=== PATIENT | male | born 1990 ===

== ENCOUNTER 2021-05-07 16:57 | Emergency (ER) | payer SELFPAY ==
[2021-05-07 17:02] VITALS: BP 146/99
== END 2021-05-07 18:19 | disposition left against medical advice (07) ==
LOC: ED 16:57
DX: R10.9 Unspecified abdominal pain (principal); Z53.21 Procedure and treatment not carried out due to patient leaving prior to being seen by health care provider

== ENCOUNTER 2021-05-10 09:39 | Inpatient (IN) | payer SELFPAY ==
[2021-05-10] MEDS ORDERED: ONDANSETRON 4 MG/2 ML INJ IV ONE ×2 (11:00→13:38)
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
[2021-05-10 11:15] LABS: Basophils % (Auto) 0.7 % (0.0-1.8); Eosinophils # (Auto) 0.3 K/mm3 (0.0-0.4); Eosinophils % (Auto) 5.7 % (0.0-4.3); Hematocrit 45.7 % (35.5-45.6); Lymphocytes # (Auto) 1.4 K/mm3 (1.2-5.4); Lymphocytes % (Auto) 24.5 % (13.4-35.0); Mean Corpuscular HGB Conc 35 % (32-34); Mean Corpuscular Volume 93 fl (84-94); Monocytes # (Auto) 0.9 K/mm3 (0.0-0.8); Monocytes % (Auto) 14.8 % (0.0-7.3); Platelet Count 218 K/mm3 (140-440); Red Blood Count 4.89 M/mm3 (3.65-5.03); Red Cell Distribution Width 13.4 % (13.2-15.2)
[2021-05-10 11:36] LABS: Alanine Aminotransferase 337 units/L (7-56); Albumin 3.9 g/dL (3.9-5); BUN/Creatinine Ratio 9; Blood Urea Nitrogen 9 mg/dL (9-20); Calcium 9.3 mg/dL (8.4-10.2); Hemolysis Index 15
--- NOTE | 2021-05-10 12:23 | Cat Scan Report ---
CT abdomen pelvis w con INDICATION / CLINICAL INFORMATION: LUQ pain and tenderness. 100 ML OMNI 300 . TECHNIQUE: Axial CT imaging of abdomen and pelvis was obtained with IV contrast. Coronal and sagittal reformatte d imaging obtained and reviewed. All CT scans at this location are performed using CT dose reduction for ALARA by means of automated exposure control. COMPARISON: None available. FINDINGS: CT abdomen with IV contrast demonstrates normal appearance of the liver, spleen, pancreas, kidneys, a nd adrenal glands. Gallbladder is mildly distended. There is mild gallbladder wall thickening. A stent is present in the common bile duct. There is a trace of intrahepatic biliary dilatation present. CT pelvis with contrast does not demonstrate any mass, free fluid, or focal inflammatory change. GI t ract is unremarkable. The appendix is not identified. Visualized lung bases are clear. No acute osseous abnormality. IMPRESSION: 1. A stent is present in the common bile duct and appears to be in satisfactory position. No signific ant biliary dilatation. However, the gallbladder does appear slightly abnormal. Gallbladder is mildly distended and there is diffuse gallbladder wall thickening. This may be patient's chronic appearance of gallbladder following stent placement, however, acute cholecystitis could also have this appearan ce and clinical correlation is recommended as to whether further imaging with ultrasound is required. 2. No other abnormal finding is present within the abdomen or pelvis. I see no finding to account for the patient's complaint of left upper quadrant pain. Signer Name: Emelyn Street MD Signed: 05/10/2021 12:19 PM Workstation Name: [id number]
[2021-05-10] MEDS ORDERED: MORPHINE 4 MG/1 ML INJ IV ONE (13:38)
[2021-05-10 13:42] LABS: Bilirubin,Urine MOD (Negative); Blood,Urine NEG (Negative); Color,Urine Amber (Yellow); Mucus,Urine 3+ /HPF
[2021-05-10 13:48] LABS: Ictotest,Urine Positive (Negative)
--- NOTE | 2021-05-10 15:25 | Ultrasound Report ---
ULTRASOUND ABDOMEN, LIMITED (RIGHT UPPER QUADRANT) INDICATION: Right upper quadrant pain. COMPARISON: CT abdomen earlier today. FINDINGS: Pancreas: Not visualized. Liver: Normal. Gallbladder: As seen on image 34, there is an irregular intraluminal hyperechoic focus in the gallbla dder measuring 3.6 x 1.1 cm. There is no shadowing associated with this. This is nonmobile. No defini te shadowing stones. There is borderline gallbladder wall thickening. Bile ducts: There is no intrahepatic biliary dilatation. Common Bile Duct stent is noted. Duct measur es 4 mm. Free fluid: None. Additional Findings: None. IMPRESSION: 1. Somewhat irregular nonmobile nonshadowing 3.6 cm focus in the lumen of the gallbladder. This could be atypical sludge; however, it does not appear to layer. No definite gallstones are seen. An intrin sic gallbladder neoplasm would be unusual in a patient of this age. There is no corresponding CT abno rmality on the exam from earlier today. 2. No intrahepatic biliary dilatation. Signer Name: Td Bell MD Signed: 05/10/2021 3:21 PM Workstation Name: [id number]
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
--- NOTE | 2021-05-10 21:00 | History and Physical Report ---
History of Present Illness Date of admission: 05/10/21 17:42 Medications and Allergies Allergies Allergy/AdvReac Type Severity Reaction Status Date / Time No Known Allergies Allergy Unverified 05/10/21 10:42 Exam - Constitutional Vitals: Temp Pulse Resp BP Pulse Ox 98.3 F 83 18 155/101 98 05/10/21 10:58 05/10/21 10:58 05/10/21 14:47 05/10/21 10:58 05/10/21 10:58 Results - Labs CBC & Chem 7: 05/10/21 11:03 05/10/21 11:03 Labs: Laboratory Last Values WBC 5.9 K/mm3 (4.5-11.0) 05/10/21 11:03 RBC 4.89 M/mm3 (3.65-5.03) 05/10/21 11:03 Hgb 16.0 gm/dl (11.8-15.2) H 05/10/21 11:03 Hct 45.7 % (35.5-45.6) H 05/10/21 11:03 MCV 93 fl (84-94) 05/10/21 11:03 MCH 33 pg (28-32) H 05/10/21 11:03 MCHC 35 % (32-34) H 05/10/21 11:03 RDW 13.4 % (13.2-15.2) 05/10/21 11:03 Plt Count 218 K/mm3 (140-440) 05/10/21 11:03 Lymph % (Auto) 24.5 % (13.4-35.0) 05/10/21 11:03 [place] % (Auto) 14.8 % (0.0-7.3) H 05/10/21 11:03 Eos % (Auto) 5.7 % (0.0-4.3) H 05/10/21 11:03 Baso % (Auto) 0.7 % (0.0-1.8) 05/10/21 11:03 Lymph # (Auto) 1.4 K/mm3 (1.2-5.4) 05/10/21 11:03 [place] # (Auto) 0.9 K/mm3 (0.0-0.8) H 05/10/21 11:03 Eos # (Auto) 0.3 K/mm3 (0.0-0.4) 05/10/21 11:03 Baso # (Auto) 0.0 K/mm3 (0.0-0.1) 05/10/21 11:03 Seg Neutrophils % 54.3 % (40.0-70.0) 05/10/21 11:03 Seg Neutrophils # 3.2 K/mm3 (1.8-7.7) 05/10/21 11:03 Sodium 140 mmol/L (137-145) 05/10/21 11:03 Potassium 4.8 mmol/L (3.6-5.0) 05/10/21 11:03 Chloride 102.5 mmol/L (98-107) 05/10/21 11:03 Carbon Dioxide 26 mmol/L (22-30) 05/10/21 11:03 Anion Gap 16 mmol/L 05/10/21 11:03 BUN 9 mg/dL (9-20) 05/10/21 11:03 Creatinine 1.0 mg/dL (0.8-1.3) 05/10/21 11:03 Estimated GFR > 60 ml/min 05/10/21 11:03 BUN/Creatinine Ratio 9 % 05/10/21 11:03 Glucose 121 mg/dL (75-100) H 05/10/21 11:03 Calcium 9.3 mg/dL (8.4-10.2) 05/10/21 11:03 Total Bilirubin 3.20 mg/dL (0.1-1.2) H 05/10/21 11:03 AST 139 units/L (5-40) H 05/10/21 11:03 ALT 337 units/L (7-56) H 05/10/21 11:03 Alkaline Phosphatase 171 units/L (35-129) H 05/10/21 11:03 Total Protein 8.1 g/dL (6.3-8.2) 05/10/21 11:03 Albumin 3.9 g/dL (3.9-5) 05/10/21 11:03 Albumin/Globulin Ratio 0.9 % 05/10/21 11:03 Lipase 50 units/L (13-60) 05/10/21 11:03 Urine Color Sarah (Yellow) 05/10/21 13:19 Urine Turbidity Clear (Clear) 05/10/21 13:19 Urine pH 7.0 (5.0-7.0) 05/10/21 13:19 Ur Specific [place] 1.026 (1.003-1.030) 05/10/21 13:19 Urine Protein 30 mg/dl mg/dL (Negative) 05/10/21 13:19 Urine Glucose (UA) Neg mg/dL (Negative) 05/10/21 13:19 Urine Ketones Neg mg/dL (Negative) 05/10/21 13:19 Urine Blood Neg (Negative) 05/10/21 13:19 Urine Nitrite Neg (Negative) 05/10/21 13:19 Urine Bilirubin Mod (Negative) 05/10/21 13:19 Urine Ictotest Positive (Negative) 05/10/21 13:19 Urine Urobilinogen 4.0 mg/dL (<2.0) 05/10/21 13:19 Ur Leukocyte Esterase Neg (Negative) 05/10/21 13:19 Urine WBC (Auto) 2.0 /HPF (0.0-6.0) 05/10/21 13:19 Urine RBC (Auto) 5.0 /HPF (0.0-6.0) 05/10/21 13:19 U Epithel Cells (Auto) < 1.0 /HPF (0-13.0) 05/10/21 13:19 Urine Mucus 3+ /HPF 05/10/21 13:19
[2021-05-10] MEDS ORDERED: HYDROmorphone 1 MG/1 ML INJ IV PRN (21:02)
[2021-05-10] MEDS ORDERED: ONDANSETRON 4 MG/2 ML INJ IV PRN (21:02)
[2021-05-10] MEDS ORDERED: ACETAMINOPHEN 325 MG TAB PO PRN (21:02)
[2021-05-10] MEDS ORDERED: METOCLOPRAMIDE 10 MG/2 ML INJ IV PRN (21:02)
[2021-05-10 22:21] LABS: Hepatitis C Virus Antibody Non-Reactive (NonReactive)
[2021-05-10] MEDS: FAMOTIDINE 20 MG/2 ML INJ IV SCH (22:46)
[2021-05-10] MEDS: PIPERACIL/TAZOBACTA 4.5/NS 100 4.5 GM/100 ML VIAL IV SCH (22:47)
[2021-05-10] MEDS: D5W/0.9% NACL 1,000 ML IV SCH (22:48)
[2021-05-10 23:40] LABS: Hepatitis B Surface Antigen Nonreactive (Negative)
[2021-05-11] MEDS: PIPERACIL/TAZOBACTA 4.5/NS 100 4.5 GM/100 ML VIAL IV SCH ×3 (05:49→23:35)
[2021-05-11 06:40] LABS: Hematocrit 42.2 % (35.5-45.6); Hemoglobin 14.6 gm/dl (11.8-15.2); Mean Corpuscular HGB Conc 35 % (32-34); Mean Corpuscular Volume 94 fl (84-94); Platelet Count 211 K/mm3 (140-440); Red Blood Count 4.47 M/mm3 (3.65-5.03); Red Cell Distribution Width 13.5 % (13.2-15.2)
[2021-05-11 06:57] LABS: Alanine Aminotransferase 279 units/L (7-56); Albumin 3.3 g/dL (3.9-5); BUN/Creatinine Ratio 5; Blood Urea Nitrogen 6 mg/dL (9-20); Hemolysis Index 5
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
--- NOTE | 2021-05-11 11:42 | Magnetic Resonance Report ---
MRI ABDOMEN WITHOUT CONTRAST HISTORY: Right upper quadrant pain and transaminitis COMPARISON: Ultrasound right upper quadrant and CT abdomen and pelvis performed 05/10/2021 TECHNIQUE: Multiplanar, multisequence MR imaging was performed of the abdomen without intravenous con trast. T2-weighted MIP projections were post-processed under concurrent physician supervision for pu rposes of MRCP. CONTRAST: None. FINDINGS: Liver: No significant abnormality. Biliary: Trace sludge is suspected in the gallbladder is noted on previous ultrasound. No evidence fo r gallstones or gallbladder mass. Small pericholecystic fluid is evident in the subhepatic space. The MRCP images are somewhat limited particularly involving the distal common bile duct secondary to the common bile duct stent. No obvious obstructing lesion in the distal common bile duct is appreciated. No intrahepatic biliary dilatation. Spleen: No significant abnormality. Pancreas: No significant abnormality. The pancreatic duct is normal on MRCP. Adrenals: No significant abnormality. Kidneys: No significant abnormality. Lymphatics: No lymphadenopathy. Vasculature: No significant abnormality. Bowel and Mesentery: Visualized portions without significant abnormality. Osseous Structures: No significant abnormality. Additional Findings: None. IMPRESSION: Trace sludge is suspected in the gallbladder. No gallstones are obvious choledocholithiasis. Evaluati on of the distal common bile duct is slightly limited on MRCP due to the presence of a common bile du ct stent. No biliary dilatation is suspected. There is small pericholecystic fluid in the subhepatic space of unclear etiology. Unremarkable liver parenchyma. Signer Name: Albaro Murillo Jr, MD Signed: 05/11/2021 11:38 AM Workstation Name: [id number]
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
[2021-05-11] MEDS: FAMOTIDINE 20 MG/2 ML INJ IV SCH ×2 (13:38→23:36)
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
--- NOTE | 2021-05-11 17:07 | Event Note ---
Date: 05/11/21 - pt seen and examined, full consult dictated - pt will need ercp w/ stent removal - discussed w/ surgery, decision as to timing of procedure to follow - will follow
[2021-05-11] MEDS: D5W/0.9% NACL 1,000 ML IV SCH (17:45)
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
[2021-05-12] MEDS: PIPERACIL/TAZOBACTA 4.5/NS 100 4.5 GM/100 ML VIAL IV SCH (06:12)
--- NOTE | 2021-05-12 07:33 | Progress Note ---
Assessment and Plan Assessment and plan: #Possible cholecystitis #Right upper quadrant abdominal pain #Elevated liver enzymes #Hyperbilirubinemia -s/p biliary stent in 2019 -CT abdomen/pelvis 05/10: Showed actually placed biliary stent and enlarged gallbladder without visualize gallstones -RUQ abdominal US 05/10 -MRCP 05/11: Suspected trace sludge in gallbladder with limited evaluation of the distal CBD -ERCP today via GI -Cholecystectomy today per Surgery -AST/ALT/T bili downtrending, will continue to monitor #Volume depletion -Continue IV fluid resuscitation #DVT prophylaxis -Continue SQH 3 times daily Disposition Plan: Home Total Time Spent with Patient (Minutes): 20 minutes History Interval history: No acute events overnight. Patient reports major improvement in epigastric pain. Denies nausea, vomiting, and diarrhea. Hospitalist Physical - Physical exam Narrative exam: GENERAL: Well-developed well-nourished. Sitting on the bed in no acute distress. CHEST/LUNGS: CTAB on room air HEART/CARDIOVASCULAR: RRR. No murmur, rubs or gallops appreciated. ABDOMEN: +BS. NT/ND. SKIN: No rashes noted. NEURO: No focal motor deficit. Follows all commands and is ambulatory. MUSCULOSKELETAL: No joint effusion EXTREMITIES: No cyanosis, clubbing or edema. PSYCH: Cooperative. - Constitutional Vitals: Temp Pulse Resp BP Pulse Ox 98.0 F 71 18 124/94 98 05/12/21 03:57 05/12/21 03:57 05/12/21 03:57 05/12/21 03:57 05/12/21 06:00 General appearance: Present: no acute distress, well-nourished HEART Score - HEART Score Risk factors: No known risk factors Troponin: < normal limit - Critical Actions Critical Actions: 0-3 pts:0.9-1.7%risk of adverse cardiac event.Candidate for discharge Results - Labs CBC & Chem 7: 05/12/21 07:18 05/12/21 07:18 Labs: Laboratory Last Values WBC 4.4 K/mm3 (4.5-11.0) L 05/11/21 05:09 RBC 4.47 M/mm3 (3.65-5.03) 05/11/21 05:09 Hgb 14.6 gm/dl (11.8-15.2) 05/11/21 05:09 Hct 42.2 % (35.5-45.6) 05/11/21 05:09 MCV 94 fl (84-94) 05/11/21 05:09 MCH 33 pg (28-32) H 05/11/21 05:09 MCHC 35 % (32-34) H 05/11/21 05:09 RDW 13.5 % (13.2-15.2) 05/11/21 05:09 Plt Count 211 K/mm3 (140-440) 05/11/21 05:09 Lymph % (Auto) 24.5 % (13.4-35.0) 05/10/21 11:03 Sampson % (Auto) Petroleum Engineering Professor 05/11/21 05:09 Eos % (Auto) 5.7 % (0.0-4.3) H 05/10/21 11:03 Baso % (Auto) 0.7 % (0.0-1.8) 05/10/21 11:03 Lymph # (Auto) 1.4 K/mm3 (1.2-5.4) 05/10/21 11:03 Sampson # (Auto) 0.9 K/mm3 (0.0-0.8) H 05/10/21 11:03 Eos # (Auto) 0.3 K/mm3 (0.0-0.4) 05/10/21 11:03 Baso # (Auto) 0.0 K/mm3 (0.0-0.1) 05/10/21 11:03 Add Manual Diff Complete 05/11/21 05:09 Seg Neutrophils % 54.3 % (40.0-70.0) 05/10/21 11:03 Nucleated RBC % Not Reportable 05/11/21 05:09 Seg Neutrophils # 3.2 K/mm3 (1.8-7.7) 05/10/21 11:03 WBC Morphology Not Reportable 05/11/21 05:09 Hypersegmented Neuts Not Reportable 05/11/21 05:09 Hyposegmented Neuts Not Reportable 05/11/21 05:09 Hypogranular Neuts Not Reportable 05/11/21 05:09 Smudge Cells Not Reportable 05/11/21 05:09 Toxic Granulation Not Reportable 05/11/21 05:09 Toxic Vacuolation Not Reportable 05/11/21 05:09 Dohle Bodies Not Reportable 05/11/21 05:09 Pelger-Huet Anomaly Not Reportable 05/11/21 05:09 Tarah Rods Not Reportable 05/11/21 05:09 Platelet Estimate Not Reportable 05/11/21 05:09 Clumped Platelets Not Reportable 05/11/21 05:09 Plt Clumps, EDTA Not Reportable 05/11/21 05:09 Large Platelets Not Reportable 05/11/21 05:09 Giant Platelets Not Reportable 05/11/21 05:09 Platelet Satelliting Not Reportable 05/11/21 05:09 Plt Morphology Comment Not Reportable 05/11/21 05:09 RBC Morphology Not Reportable 05/11/21 05:09 Dimorphic RBCs Not Reportable 05/11/21 05:09 Polychromasia Not Reportable 05/11/21 05:09 Hypochromasia Not Reportable 05/11/21 05:09 Poikilocytosis Not Reportable 05/11/21 05:09 Anisocytosis Not Reportable 05/11/21 05:09 Microcytosis Not Reportable 05/11/21 05:09 Macrocytosis Not Reportable 05/11/21 05:09 Spherocytes Not Reportable 05/11/21 05:09 Pappenheimer Bodies Not Reportable 05/11/21 05:09 Sickle Cells Not Reportable 05/11/21 05:09 Target Cells Not Reportable 05/11/21 05:09 Tear Drop Cells Not Reportable 05/11/21 05:09 Ovalocytes Not Reportable 05/11/21 05:09 Helmet Cells Not Reportable 05/11/21 05:09 [place] Bodies Not Reportable 05/11/21 05:09 [place] Rings Not Reportable 05/11/21 05:09 Emerald Cells Not Reportable 05/11/21 05:09 Bite Cells Not Reportable 05/11/21 05:09 Crenated Cell Not Reportable 05/11/21 05:09 Elliptocytes Not Reportable 05/11/21 05:09 Acanthocytes (Spur) Not Reportable 05/11/21 05:09 Rouleaux Not Reportable 05/11/21 05:09 Hemoglobin C Crystals Not Reportable 05/11/21 05:09 Schistocytes Not Reportable 05/11/21 05:09 Malaria parasites Not Reportable 05/11/21 05:09 Blaine Bodies Not Reportable 05/11/21 05:09 Hem Pathologist Commnt No 05/11/21 05:09 Sodium 139 mmol/L (137-145) 05/11/21 05:09 Potassium 4.0 mmol/L (3.6-5.0) 05/11/21 05:09 Chloride 103.5 mmol/L (98-107) 05/11/21 05:09 Carbon Dioxide 27 mmol/L (22-30) 05/11/21 05:09 Anion Gap 13 mmol/L 05/11/21 05:09 BUN 6 mg/dL (9-20) L 05/11/21 05:09 Creatinine 1.2 mg/dL (0.8-1.3) 05/11/21 05:09 Estimated GFR > 60 ml/min 05/11/21 05:09 BUN/Creatinine Ratio 5 % 05/11/21 05:09 Glucose 112 mg/dL (75-100) H 05/11/21 05:09 Calcium 9.0 mg/dL (8.4-10.2) 05/11/21 05:09 Total Bilirubin 2.20 mg/dL (0.1-1.2) H 05/11/21 05:09 AST 112 units/L (5-40) H 05/11/21 05:09 ALT 279 units/L (7-56) H 05/11/21 05:09 Alkaline Phosphatase 160 units/L (35-129) H 05/11/21 05:09 Total Protein 7.0 g/dL (6.3-8.2) 05/11/21 05:09 Albumin 3.3 g/dL (3.9-5) L 05/11/21 05:09 Albumin/Globulin Ratio 0.9 % 05/11/21 05:09 Lipase 50 units/L (13-60) 05/10/21 11:03 Urine Color Sarah (Yellow) 05/10/21 13:19 Urine Turbidity Clear (Clear) 05/10/21 13:19 Urine pH 7.0 (5.0-7.0) 05/10/21 13:19 Ur Specific [place] 1.026 (1.003-1.030) 05/10/21 13:19 Urine Protein 30 mg/dl mg/dL (Negative) 05/10/21 13:19 Urine Glucose (UA) Neg mg/dL (Negative) 05/10/21 13:19 Urine Ketones Neg mg/dL (Negative) 05/10/21 13:19 Urine Blood Neg (Negative) 05/10/21 13:19 Urine Nitrite Neg (Negative) 05/10/21 13:19 Urine Bilirubin Mod (Negative) 05/10/21 13:19 Urine Ictotest Positive (Negative) 05/10/21 13:19 Urine Urobilinogen 4.0 mg/dL (<2.0) 05/10/21 13:19 Ur Leukocyte Esterase Neg (Negative) 05/10/21 13:19 Urine WBC (Auto) 2.0 /HPF (0.0-6.0) 05/10/21 13:19 Urine RBC (Auto) 5.0 /HPF (0.0-6.0) 05/10/21 13:19 U Epithel Cells (Auto) < 1.0 /HPF (0-13.0) 05/10/21 13:19 Urine Mucus 3+ /HPF 05/10/21 13:19 Hepatitis A IgM Ab Non-reactive (NonReactive) 05/10/21 21:40 Hep Bs Antigen Nonreactive (Negative) 05/10/21 21:40 Hep B Core IgM Ab Non-reactive (NonReactive) 05/10/21 21:40 Hepatitis C Antibody Non-reactive (NonReactive) 05/10/21 21:40 Mendoza/IV: Voiding Method Toilet Active Medications - Current Medications Current Medications: Generic Name Dose Route Start Last Admin Trade Name Freq PRN Reason Stop Dose Admin Acetaminophen 650 mg 05/10/21 21:02 Acetaminophen 325 Mg Tab PO Q4H PRN Pain MILD(1-3)/Fever >100.5/MANN Famotidine 20 mg 05/10/21 22:00 05/11/21 23:36 Famotidine 20 Mg/2 Ml Inj IV 20 mg BID KRISTI Administration Hydromorphone HCl 0.5 mg 05/10/21 21:02 Hydromorphone 1 Mg/1 Ml Inj IV Q3H PRN Pain , Severe (7-10) Dextrose/Sodium Chloride 1,000 mls @ 75 mls/hr 05/10/21 22:00 05/11/21 17:45 D5ns IV 75 mls/hr DIRECT KRISTI Administration Piperacillin Sod/Tazobactam Sod 4.5 gm in 100 mls @ 200 mls/hr 05/10/21 22:00 05/12/21 06:12 Zosyn/Ns 4.5gm/100ml IV 200 mls/hr Q8HR KRISTI Administration Protocol Metoclopramide HCl 10 mg 05/10/21 21:02 Metoclopramide 10 Mg/2 Ml Inj IV Q6H PRN Nausea And Vomiting Morphine Sulfate 2 mg 05/10/21 21:02 Morphine 2 Mg/1 Ml Inj IV Q4H PRN Pain, Moderate (4-6) Ondansetron HCl 4 mg 05/10/21 21:02 Ondansetron 4 Mg/2 Ml Inj IV Q3H PRN Nausea And Vomiting Sodium Chloride 10 ml 05/10/21 22:00 05/11/21 22:00 Sodium Chloride 0.9% 10 Ml Flush Syringe IV 10 ml BID KRISTI Administration Sodium Chloride 10 ml 05/10/21 21:02 Sodium Chloride 0.9% 10 Ml Flush Syringe IV PRN PRN LINE FLUSH
[2021-05-12 08:08] LABS: Mean Corpuscular HGB Conc 37 % (32-34); Mean Corpuscular Volume 92 fl (84-94); Platelet Count 230 K/mm3 (140-440); Red Blood Count 4.48 M/mm3 (3.65-5.03); Red Cell Distribution Width 13.6 % (13.2-15.2)
[2021-05-12 08:10] LABS: Hematocrit 41.1 % (35.5-45.6); Hemoglobin 15.1 gm/dl (11.8-15.2)
[2021-05-12 08:40] LABS: BUN/Creatinine Ratio 5; Blood Urea Nitrogen 7 mg/dL (9-20); Calcium 9.1 mg/dL (8.4-10.2); Hemolysis Index 6
[2021-05-12] MEDS: FAMOTIDINE 20 MG/2 ML INJ IV SCH ×2 (09:17→23:37)
[2021-05-12] MEDS ORDERED: fentaNYL 100 MCG/2 ML INJ ONE ×2 (10:48→17:59)
[2021-05-12] MEDS ORDERED: LIDOCAINE MPF (2%) 20 MG/1 ML VIAL 5 ML ONE ×2 (10:48→13:16)
[2021-05-12] MEDS ORDERED: propofoL 200 MG/20 ML VIAL IV ONE ×4 (10:49→13:42)
[2021-05-12] MEDS ORDERED: KETAMINE/STERILE WATER 50 MG/ML SYRINGE ONE ×2 (10:49→13:17)
[2021-05-12] MEDS ORDERED: ONDANSETRON 4 MG/2 ML INJ ONE (10:50)
[2021-05-12] MEDS ORDERED: ROCURONIUM 50 MG/5 ML INJ IV ONE ×3 (10:50→17:40)
[2021-05-12] MEDS ORDERED: dexAMETHasone 20 MG/5 ML VIAL ONE (10:50)
[2021-05-12] MEDS ORDERED: WATER FOR IRRIG STERILE 1,000 ML BOTTLE ONE (12:26)
[2021-05-12] MEDS ORDERED: WATER FOR IRRIG STERILE 250 ML BOTTLE IR ONE (12:26)
[2021-05-12] MEDS ORDERED: SODIUM CHLORIDE 0.9% 100 ML ONE (12:39)
[2021-05-12] MEDS ORDERED: SODIUM CHLORIDE 0.9% 1000 ML 1,000 ML ONE (13:01)
[2021-05-12] MEDS ORDERED: MIDAZOLAM 2 MG/2 ML INJ ONE (13:17)
[2021-05-12] MEDS ORDERED: ONDANSETRON 4 MG/2 ML INJ IV PRN (14:26)
--- NOTE | 2021-05-12 14:26 | Anesthesia Day of Surgery ---
Anesthesia Day of Surgery - Day of Surgery Patient Examined: Yes Patient H&P Reviewed: Yes Patient is NPO: Yes
[2021-05-12] MEDS ORDERED: LIDOCAINE (1%) 10 MG/1 ML VIAL 20 ML MDV ONE (14:33)
[2021-05-12] MEDS ORDERED: BUPIVACAINE/PF (0.25%) 2.5 MG/ML 30 ML VIAL INFILTRATI ONE (14:33)
--- NOTE | 2021-05-12 14:34 | Post Operative Note ---
Pre-op diagnosis: biliary stent removal, abdominal pain Post-op diagnosis: same Findings: ERCP: noted ampullae w/ sphinterotomy but no noted protruding stent - metal stent noted on cholangiogram migrated into cbd - unable to remove stent with use of forceps - procedure terminated Procedure: ERCP Anesthesia: MAC Surgeon: RADHA PENNY Estimated blood loss: none Pathology: list Specimen disposition: to lab Condition: stable Disposition: floor
--- NOTE | 2021-05-12 14:50 | Operative Report ---
DATE OF SURGERY: 05/12/2021 PROCEDURE: ERCP. INDICATIONS: 1. Abdominal pain. 2. Biliary stent removal. MEDICATIONS: Propofol per TEACHING FELLOW. COMPLICATIONS: None. DESCRIPTION OF PROCEDURE: The patient brought to procedure suite. The patient had the procedure discussed with him at length. All risks, complications, benefits discussed, which the patient signed for the procedure performed. The patient was placed in left lateral decubitus position. Mouth block was placed in the patient's oral cavity. After adequate sedation with medications as above, endoscope was placed in the patient's mouth and brought to level of second portion of duodenum. Retroflexion view performed. The patient's vital signs remained stable throughout the procedure. FINDINGS: There was noted to be grossly normal-appearing esophagus and stomach. In the second portion of duodenum, there was noted to be ampulla with a large sphincterotomy. No obvious stents were noted protruding from the ampulla or sphincterotomy. Fluoroscopy views showed a metal stent that had migrated with the tip in the very distal common bile duct. Otherwise, the stent was noted to be in place and the intrahepatic ducts otherwise appeared benign. Rat tooth forceps was then employed to try to see if we could remove the stent, but was unsuccessful. No further interventions were then performed. The patient otherwise tolerated the procedure well. No complication during the procedure. IMPRESSION: 1. Grossly normal-appearing esophagus and stomach. 2. Ampulla with previous large sphincterotomy noted, but no stent protruding. 3. Fluoroscopy view showed migrated stent to the distal common bile duct. 4. Unable to remove stent as noted above. RECOMMENDATIONS: 1. Follow labs. 2. Laparoscopic cholecystectomy per surgery team. 3. Once the patient cleared by surgery, okay to discharge. 4. The patient will require ERCP with [employer] as an outpatient to remove the stent and we will set up as an outpatient. 5. We will try to also get previous operative notes from the patient at that time. TID: [id number] RECEIPT: [id number] CAB/SANDRO
[2021-05-12] MEDS ORDERED: ceFAZolin 1 GM VIAL ONE (15:02)
[2021-05-12] MEDS ORDERED: HYDROmorphone 1 MG/1 ML INJ ONE (15:17)
--- NOTE | 2021-05-12 15:20 | Fluoroscopy Report ---
FL ercp biliary duct INDICATION / CLINICAL INFORMATION: stent removal/retained stent. COMPARISON: MRI abdomen one day prior FINDINGS: A common bile duct stent is in place. Fluoroscopic images were obtained during ERCP for attempt at st ent removal. Fluoroscopy time: 1 minute 53 seconds. Fluoroscopic images: 2. IMPRESSION: 1. Fluoroscopic images for ERCP. Signer Name: Priya Rodriguez MD Signed: 05/12/2021 3:16 PM Workstation Name: [id number]
[2021-05-12] MEDS ORDERED: LACTATED RINGERS 1,000 ML ONE ×2 (15:44→18:23)
[2021-05-12 16:20] LABS: Platelet Estimate Consistent w Auto; RBC Morphology Normal; Total Cells Counted 100
[2021-05-12] MEDS ORDERED: LIDOCAINE (1%) 10 MG/1 ML VIAL 20 ML MDV INFILTRATI ONE (16:38)
[2021-05-12] MEDS ORDERED: BUPIVACAINE/PF (0.5%) 5 MG/1 ML 10 ML VIAL INFILTRATI ONE (16:39)
[2021-05-12] MEDS ORDERED: NEOSTIGMINE 10MG/10 ML INJ MDV ONE (18:27)
[2021-05-12] MEDS ORDERED: GLYCOPYRROLATE 0.4 MG/2 ML INJ ONE ×2 (18:27)
--- NOTE | 2021-05-12 18:51 | Post Operative Note ---
Pre-op diagnosis: acute cholecystitis Post-op diagnosis: same Findings: 1. Extensive adhesions - essentially frozen abdomen 2. distended gallbladder with thickened wall Procedure: diagnostic laparoscopy converted to exploratory laparotomy, extensive adhesiolysis, cholecystectomy, primary repair of enterotomy Anesthesia: LVA Surgeon: LOUISA RUSSO [place] Calciner: NEELIMA NOLASCO Estimated blood loss: 50-100ml Pathology: list (gallbladder) Specimen disposition: to lab Condition: stable Disposition: PACU
[2021-05-12] MEDS: HYDROmorphone 1 MG/1 ML INJ IV PRN ×2 (19:28→20:00)
[2021-05-12] MEDS: metroNIDAZOLE/NS 500 MG/100 ML 500 MG/100 ML BAG IV SCH (23:28)
[2021-05-12] MEDS: MORPHINE 2 MG/1 ML INJ IV PRN (23:31)
[2021-05-12] MEDS: HEPARIN 5,000 UNIT/1 ML VIAL SUB-Q SCH (23:37)
[2021-05-13] MEDS: PIPERACIL/TAZOBACTA 4.5/NS 100 4.5 GM/100 ML VIAL IV SCH ×6 (00:10→22:26)
[2021-05-13] MEDS: metroNIDAZOLE/NS 500 MG/100 ML 500 MG/100 ML BAG IV SCH (03:20)
[2021-05-13] MEDS: HEPARIN 5,000 UNIT/1 ML VIAL SUB-Q SCH ×3 (05:28→22:26)
[2021-05-13] MEDS: MORPHINE 2 MG/1 ML INJ IV PRN ×3 (06:33→20:11)
--- NOTE | 2021-05-13 08:38 | Progress Note ---
Assessment and Plan Assessment and plan: #Possible cholecystitis #Right upper quadrant abdominal pain #Elevated liver enzymes #Hyperbilirubinemia -s/p biliary stent in 2019 -CT abdomen/pelvis 05/10: Showed actually placed biliary stent and enlarged gallbladder without visualize gallstones -RUQ abdominal US 05/10 -MRCP 05/11: Suspected trace sludge in gallbladder with limited evaluation of the distal CBD -ERCP completed 05/12 -s/p exploratory laparotomy, extensive adhesiolysis, cholecystectomy and primary repair of enterotomy 05/12 -CLD, will advance as tolerated -AST/ALT/T bili downtrending, will continue to monitor #Volume depletion -continue IV fluid resuscitation -will discontinue IV fluids once patient has oral intake #DVT prophylaxis -Continue SQH 3 times daily Disposition Plan: Home Total Time Spent with Patient (Minutes): 30 minutes History Interval history: No acute events overnight. Patient in visible pain. Has requested pain medicine. Has no other complaints at this time Hospitalist Physical - Physical exam Narrative exam: GENERAL: Well-developed well-nourished. Lying in bed in no acute distress. CHEST/LUNGS: CTAB on room air HEART/CARDIOVASCULAR: RRR. No murmur, rubs or gallops appreciated. ABDOMEN: Abdominal binder. Midline abdominal surgical incision covered with clean bandaging. +BS. NEURO: No focal motor deficit. Follows all commands. EXTREMITIES: SCDs in place. No cyanosis, clubbing or edema. PSYCH: Cooperative. - Constitutional Vitals: Temp Pulse Resp BP Pulse Ox 98.8 F 71 20 133/80 99 05/13/21 05:02 05/13/21 05:02 05/13/21 05:02 05/13/21 05:02 05/13/21 05:02 General appearance: Present: no acute distress, well-nourished HEART Score - HEART Score Risk factors: No known risk factors Troponin: < normal limit - Critical Actions Critical Actions: 0-3 pts:0.9-1.7%risk of adverse cardiac event.Candidate for discharge Results - Labs CBC & Chem 7: 05/12/21 07:18 05/12/21 07:18 Labs: Laboratory Last Values WBC 4.8 K/mm3 (4.5-11.0) 05/12/21 07:18 RBC 4.48 M/mm3 (3.65-5.03) 05/12/21 07:18 Hgb 15.1 gm/dl (11.8-15.2) 05/12/21 07:18 Hct 41.1 % (35.5-45.6) 05/12/21 07:18 MCV 92 fl (84-94) 05/12/21 07:18 MCH 34 pg (28-32) H 05/12/21 07:18 MCHC 37 % (32-34) H 05/12/21 07:18 RDW 13.6 % (13.2-15.2) 05/12/21 07:18 Plt Count 230 K/mm3 (140-440) 05/12/21 07:18 Lymph % (Auto) 24.5 % (13.4-35.0) 05/10/21 11:03 Cassia % (Auto) Fire Fighters Dispatcher 05/12/21 07:18 Eos % (Auto) 5.7 % (0.0-4.3) H 05/10/21 11:03 Baso % (Auto) 0.7 % (0.0-1.8) 05/10/21 11:03 Lymph # (Auto) 1.4 K/mm3 (1.2-5.4) 05/10/21 11:03 Cassia # (Auto) 0.9 K/mm3 (0.0-0.8) H 05/10/21 11:03 Eos # (Auto) 0.3 K/mm3 (0.0-0.4) 05/10/21 11:03 Baso # (Auto) 0.0 K/mm3 (0.0-0.1) 05/10/21 11:03 Add Manual Diff Complete 05/12/21 07:18 Total Counted 100 05/12/21 07:18 Seg Neutrophils % Fire Fighters Dispatcher 05/12/21 07:18 Seg Neuts % (Manual) 24.0 % (40.0-70.0) L 05/12/21 07:18 Lymphocytes % (Manual) 55.0 % (13.4-35.0) H 05/12/21 07:18 Monocytes % (Manual) 12.0 % (0.0-7.3) H 05/12/21 07:18 Eosinophils % (Manual) 7.0 % (0.0-4.3) H 05/12/21 07:18 Basophils % (Manual) 2.0 % (0.0-1.8) H 05/12/21 07:18 Nucleated RBC % Not Reportable 05/12/21 07:18 Seg Neutrophils # 3.2 K/mm3 (1.8-7.7) 05/10/21 11:03 Seg Neutrophils # Man 1.2 K/mm3 (1.8-7.7) L 05/12/21 07:18 Band Neutrophils # 0.0 K/mm3 05/12/21 07:18 Lymphocytes # (Manual) 2.6 K/mm3 (1.2-5.4) 05/12/21 07:18 Abs React Lymphs (Man) 0.0 K/mm3 05/12/21 07:18 Monocytes # (Manual) 0.6 K/mm3 (0.0-0.8) 05/12/21 07:18 Eosinophils # (Manual) 0.3 K/mm3 (0.0-0.4) 05/12/21 07:18 Basophils # (Manual) 0.1 K/mm3 (0.0-0.1) 05/12/21 07:18 Metamyelocytes # 0.0 K/mm3 05/12/21 07:18 Myelocytes # 0.0 K/mm3 05/12/21 07:18 Promyelocytes # 0.0 K/mm3 05/12/21 07:18 Blast Cells # 0.0 K/mm3 05/12/21 07:18 WBC Morphology Not Reportable 05/12/21 07:18 Hypersegmented Neuts Not Reportable 05/12/21 07:18 Hyposegmented Neuts Not Reportable 05/12/21 07:18 Hypogranular Neuts Not Reportable 05/12/21 07:18 Smudge Cells Not Reportable 05/12/21 07:18 Toxic Granulation Not Reportable 05/12/21 07:18 Toxic Vacuolation Not Reportable 05/12/21 07:18 Dohle Bodies Not Reportable 05/12/21 07:18 Pelger-Huet Anomaly Not Reportable 05/12/21 07:18 Tarah Rods Not Reportable 05/12/21 07:18 Platelet Estimate Consistent w auto 05/12/21 07:18 Clumped Platelets Not Reportable 05/12/21 07:18 Plt Clumps, EDTA Not Reportable 05/12/21 07:18 Large Platelets Not Reportable 05/12/21 07:18 Giant Platelets Not Reportable 05/12/21 07:18 Platelet Satelliting Not Reportable 05/12/21 07:18 Plt Morphology Comment Not Reportable 05/12/21 07:18 RBC Morphology Normal 05/12/21 07:18 Dimorphic RBCs Not Reportable 05/12/21 07:18 Polychromasia Not Reportable 05/12/21 07:18 Hypochromasia Not Reportable 05/12/21 07:18 Poikilocytosis Not Reportable 05/12/21 07:18 Anisocytosis Not Reportable 05/12/21 07:18 Microcytosis Not Reportable 05/12/21 07:18 Macrocytosis Not Reportable 05/12/21 07:18 Spherocytes Not Reportable 05/12/21 07:18 Pappenheimer Bodies Not Reportable 05/12/21 07:18 Sickle Cells Not Reportable 05/12/21 07:18 Target Cells Not Reportable 05/12/21 07:18 Tear Drop Cells Not Reportable 05/12/21 07:18 Ovalocytes Not Reportable 05/12/21 07:18 Helmet Cells Not Reportable 05/12/21 07:18 [place] Bodies Not Reportable 05/12/21 07:18 [place] Rings Not Reportable 05/12/21 07:18 Emerald Cells Not Reportable 05/12/21 07:18 Bite Cells Not Reportable 05/12/21 07:18 Crenated Cell Not Reportable 05/12/21 07:18 Elliptocytes Not Reportable 05/12/21 07:18 Acanthocytes (Spur) Not Reportable 05/12/21 07:18 Rouleaux Not Reportable 05/12/21 07:18 Hemoglobin C Crystals Not Reportable 05/12/21 07:18 Schistocytes Not Reportable 05/12/21 07:18 Malaria parasites Not Reportable 05/12/21 07:18 [place] Bodies Not Reportable 05/12/21 07:18 Hem Pathologist Commnt No 05/12/21 07:18 Sodium 140 mmol/L (137-145) 05/12/21 07:18 Potassium 4.9 mmol/L (3.6-5.0) D 05/12/21 07:18 Chloride 106.0 mmol/L (98-107) 05/12/21 07:18 Carbon Dioxide 26 mmol/L (22-30) 05/12/21 07:18 Anion Gap 13 mmol/L 05/12/21 07:18 BUN 7 mg/dL (9-20) L 05/12/21 07:18 Creatinine 1.4 mg/dL (0.8-1.3) H 05/12/21 07:18 Estimated GFR > 60 ml/min 05/12/21 07:18 BUN/Creatinine Ratio 5 % 05/12/21 07:18 Glucose 97 mg/dL (75-100) 05/12/21 07:18 Calcium 9.1 mg/dL (8.4-10.2) 05/12/21 07:18 Phosphorus 2.70 mg/dL (2.5-4.5) 05/12/21 07:18 Magnesium 2.10 mg/dL (1.7-2.3) 05/12/21 07:18 Total Bilirubin 2.20 mg/dL (0.1-1.2) H 05/11/21 05:09 AST 112 units/L (5-40) H 05/11/21 05:09 ALT 279 units/L (7-56) H 05/11/21 05:09 Alkaline Phosphatase 160 units/L (35-129) H 05/11/21 05:09 Total Protein 7.0 g/dL (6.3-8.2) 05/11/21 05:09 Albumin 3.3 g/dL (3.9-5) L 05/11/21 05:09 Albumin/Globulin Ratio 0.9 % 05/11/21 05:09 Lipase 50 units/L (13-60) 05/10/21 11:03 Urine Color Sarah (Yellow) 05/10/21 13:19 Urine Turbidity Clear (Clear) 05/10/21 13:19 Urine pH 7.0 (5.0-7.0) 05/10/21 13:19 Ur Specific [place] 1.026 (1.003-1.030) 05/10/21 13:19 Urine Protein 30 mg/dl mg/dL (Negative) 05/10/21 13:19 Urine Glucose (UA) Neg mg/dL (Negative) 05/10/21 13:19 Urine Ketones Neg mg/dL (Negative) 05/10/21 13:19 Urine Blood Neg (Negative) 05/10/21 13:19 Urine Nitrite Neg (Negative) 05/10/21 13:19 Urine Bilirubin Mod (Negative) 05/10/21 13:19 Urine Ictotest Positive (Negative) 05/10/21 13:19 Urine Urobilinogen 4.0 mg/dL (<2.0) 05/10/21 13:19 Ur Leukocyte Esterase Neg (Negative) 05/10/21 13:19 Urine WBC (Auto) 2.0 /HPF (0.0-6.0) 05/10/21 13:19 Urine RBC (Auto) 5.0 /HPF (0.0-6.0) 05/10/21 13:19 U Epithel Cells (Auto) < 1.0 /HPF (0-13.0) 05/10/21 13:19 Urine Mucus 3+ /HPF 05/10/21 13:19 Hepatitis A IgM Ab Non-reactive (NonReactive) 05/10/21 21:40 Hep Bs Antigen Nonreactive (Negative) 05/10/21 21:40 Hep B Core IgM Ab Non-reactive (NonReactive) 05/10/21 21:40 Hepatitis C Antibody Non-reactive (NonReactive) 05/10/21 21:40 Mendoza/IV: Voiding Method Urinal Active Medications - Current Medications Current Medications: Generic Name Dose Route Start Last Admin Trade Name Freq PRN Reason Stop Dose Admin Acetaminophen 650 mg 05/10/21 21:02 Acetaminophen 325 Mg Tab PO Q4H PRN Pain MILD(1-3)/Fever >100.5/MANN Famotidine 20 mg 05/10/21 22:00 05/12/21 23:37 Famotidine 20 Mg/2 Ml Inj IV 20 mg BID KRISTI Administration Heparin Sodium (Porcine) 5,000 unit 05/12/21 22:00 05/13/21 05:28 Heparin 5,000 Unit/1 Ml Vial SUB-Q 5,000 unit Q8HR KRISTI Administration Hydromorphone HCl 1 mg 05/12/21 18:52 Hydromorphone 1 Mg/1 Ml Inj IV Q3H PRN Pain , Severe (7-10) Dextrose/Sodium Chloride 1,000 mls @ 75 mls/hr 05/10/21 22:00 05/11/21 17:45 D5ns IV 75 mls/hr DIRECT KRISTI Administration Piperacillin Sod/Tazobactam Sod 4.5 gm in 100 mls @ 200 mls/hr 05/10/21 22:00 05/13/21 06:09 Zosyn/Ns 4.5gm/100ml IV 200 mls/hr Q8HR KRISTI Administration Protocol Morphine Sulfate 2 mg 05/10/21 21:02 05/13/21 06:33 Morphine 2 Mg/1 Ml Inj IV 2 mg Q4H PRN Administration Pain, Moderate (4-6) Ondansetron HCl 4 mg 05/10/21 21:02 Ondansetron 4 Mg/2 Ml Inj IV Q3H PRN Nausea And Vomiting Sodium Chloride 10 ml 05/10/21 22:00 05/12/21 23:38 Sodium Chloride 0.9% 10 Ml Flush Syringe IV 10 ml BID KRISTI Administration Sodium Chloride 10 ml 05/10/21 21:02 Sodium Chloride 0.9% 10 Ml Flush Syringe IV PRN PRN LINE FLUSH
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
[2021-05-13] MEDS: FAMOTIDINE 20 MG/2 ML INJ IV SCH ×2 (10:03→22:26)
[2021-05-13] MEDS: D5W/0.9% NACL 1,000 ML IV SCH (13:46)
[2021-05-13 14:00] LABS: Hematocrit 40.4 % (35.5-45.6); Hemoglobin 14.1 gm/dl (11.8-15.2); Mean Corpuscular HGB Conc 35 % (32-34); Mean Corpuscular Volume 93 fl (84-94); Platelet Count 235 K/mm3 (140-440); Red Blood Count 4.34 M/mm3 (3.65-5.03); Red Cell Distribution Width 13.7 % (13.2-15.2)
[2021-05-13 14:10] LABS: BUN/Creatinine Ratio 6; Blood Urea Nitrogen 7 mg/dL (9-20); Calcium 8.6 mg/dL (8.4-10.2); Hemolysis Index 5
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
--- NOTE | 2021-05-13 18:36 | Progress Note ---
Assessment and Plan 30 yo M s/p diagnostic laparoscopy converted to exploratory laparotomy, extensive adhesiolysis, cholecystectomy, primary repair of enterotomy, POD 1 Plan: 1. Clear liquids in am 2. IVF 3. SCIPS abx 4. prn pain and nausea control 5. abdominal binder 6. OOB/ambulate 7. DVT ppx 8. IS/pulm toilet Will follow. Thank you, please call with questions. Subjective Date of service: 05/13/21 Narrative: Pt seen and examined. c.o pain near incision. Has been shifting in bed but has not been OOB. No f/c. No cp, sob. Objective Vital Signs - 12hr 05/13/21 05/13/21 11:17 12:22 Temperature 98.3 F Pulse Rate 68 Respiratory 22 Rate Blood Pressure 123/71 O2 Sat by Pulse 97 94 Oximetry - General physical appearance Narrative Exam: Gen.: Awake, alert, oriented x3. No apparent distress ENT: Trachea midline. No lymphadenopathy. No scleral icterus or conjunctival pallor CV: S1, S2 present Respiratory: No audible wheezes Abdomen: soft, ND, mild incisional TTP. Midline dressing c/d/i. Abd binder in place Extremities: No clubbing, cyanosis, edema - Labs 05/13/21 13:23 05/13/21 13:23 Diabetes panel 05/13/21 Range/Units 13:23 Sodium 138 (137-145) mmol/L Potassium 3.5 L D (3.6-5.0) mmol/L Chloride 100.3 (98-107) mmol/L Carbon Dioxide 25 (22-30) mmol/L BUN 7 L (9-20) mg/dL Creatinine 1.1 (0.8-1.3) mg/dL Glucose 118 H (75-100) mg/dL Calcium 8.6 (8.4-10.2) mg/dL Calcium panel 05/13/21 Range/Units 13:23 Calcium 8.6 (8.4-10.2) mg/dL Pituitary panel 05/13/21 Range/Units 13:23 Sodium 138 (137-145) mmol/L Potassium 3.5 L D (3.6-5.0) mmol/L Chloride 100.3 (98-107) mmol/L Carbon Dioxide 25 (22-30) mmol/L BUN 7 L (9-20) mg/dL Creatinine 1.1 (0.8-1.3) mg/dL Glucose 118 H (75-100) mg/dL Calcium 8.6 (8.4-10.2) mg/dL Adrenal panel 05/13/21 Range/Units 13:23 Sodium 138 (137-145) mmol/L Potassium 3.5 L D (3.6-5.0) mmol/L Chloride 100.3 (98-107) mmol/L Carbon Dioxide 25 (22-30) mmol/L BUN 7 L (9-20) mg/dL Creatinine 1.1 (0.8-1.3) mg/dL Glucose 118 H (75-100) mg/dL Calcium 8.6 (8.4-10.2) mg/dL
[2021-05-13] MEDS: HYDROmorphone 1 MG/1 ML INJ IV PRN (22:29)
[2021-05-14] MEDS: D5W/0.9% NACL 1,000 ML IV SCH (02:53)
[2021-05-14] MEDS: HYDROmorphone 1 MG/1 ML INJ IV PRN ×3 (03:52→17:59)
[2021-05-14] MEDS: PIPERACIL/TAZOBACTA 4.5/NS 100 4.5 GM/100 ML VIAL IV SCH (05:36)
[2021-05-14] MEDS: HEPARIN 5,000 UNIT/1 ML VIAL SUB-Q SCH ×3 (05:36→21:21)
[2021-05-14 06:14] LABS: Hematocrit 39.2 % (35.5-45.6); Hemoglobin 13.7 gm/dl (11.8-15.2); Mean Corpuscular HGB Conc 35 % (32-34); Mean Corpuscular Volume 92 fl (84-94); Platelet Count 246 K/mm3 (140-440); Red Blood Count 4.28 M/mm3 (3.65-5.03); Red Cell Distribution Width 13.7 % (13.2-15.2)
[2021-05-14 06:35] LABS: Alanine Aminotransferase 172 units/L (7-56); Albumin 2.9 g/dL (3.9-5); BUN/Creatinine Ratio 5; Blood Urea Nitrogen 6 mg/dL (9-20); Calcium 8.7 mg/dL (8.4-10.2); Hemolysis Index 6
--- NOTE | 2021-05-14 07:22 | Progress Note ---
Assessment and Plan Assessment and plan: #Possible cholecystitis #Right upper quadrant abdominal pain #Elevated liver enzymes #Hyperbilirubinemia -s/p biliary stent in 2019 -CT abdomen/pelvis 05/10: Showed actually placed biliary stent and enlarged gallbladder without visualize gallstones -RUQ abdominal US 05/10 -MRCP 05/11: Suspected trace sludge in gallbladder with limited evaluation of the distal CBD -ERCP completed 05/12; will need to follow-up outpatient for stent removal -s/p exploratory laparotomy, extensive adhesiolysis, cholecystectomy and primary repair of enterotomy 05/12 -CLD, will advance to full liquid diet tomorrow -AST/ALT/T bili downtrending, will continue to monitor #Volume depletion -continue IV fluid resuscitation -will discontinue IV fluids once patient has oral intake #DVT prophylaxis -Continue SQH 3 times daily Disposition Plan: Home Total Time Spent with Patient (Minutes): 20 minutes History Interval history: No acute events overnight. Reporting excruciating pain after cough. Has requested pain medicine. Has not yet eaten breakfast. Has no other complaints at this time Hospitalist Physical - Physical exam Narrative exam: GENERAL: Well-developed well-nourished. Sitting in chair. CHEST/LUNGS: CTAB on room air HEART/CARDIOVASCULAR: RRR. No murmur, rubs or gallops appreciated. ABDOMEN: Abdominal binder. Midline abdominal surgical incision covered with clean bandaging. +BS. NEURO: No focal motor deficit. Follows all commands. EXTREMITIES: SCDs in place. No cyanosis, clubbing or edema. PSYCH: Cooperative. - Constitutional Vitals: Temp Pulse Resp BP Pulse Ox 98.6 F 70 18 124/84 100 05/14/21 05:00 05/14/21 05:00 05/14/21 05:00 05/14/21 05:00 05/14/21 05:00 General appearance: Present: no acute distress, well-nourished HEART Score - HEART Score Risk factors: No known risk factors Troponin: < normal limit - Critical Actions Critical Actions: 0-3 pts:0.9-1.7%risk of adverse cardiac event.Candidate for discharge Results - Labs CBC & Chem 7: 05/14/21 05:57 05/14/21 05:57 Labs: Laboratory Last Values WBC 7.0 K/mm3 (4.5-11.0) 05/14/21 05:57 RBC 4.28 M/mm3 (3.65-5.03) 05/14/21 05:57 Hgb 13.7 gm/dl (11.8-15.2) 05/14/21 05:57 Hct 39.2 % (35.5-45.6) 05/14/21 05:57 MCV 92 fl (84-94) 05/14/21 05:57 MCH 32 pg (28-32) 05/14/21 05:57 MCHC 35 % (32-34) H 05/14/21 05:57 RDW 13.7 % (13.2-15.2) 05/14/21 05:57 Plt Count 246 K/mm3 (140-440) 05/14/21 05:57 Lymph % (Auto) 24.5 % (13.4-35.0) 05/10/21 11:03 Porter % (Auto) Dietetics Professor 05/12/21 07:18 Eos % (Auto) 5.7 % (0.0-4.3) H 05/10/21 11:03 Baso % (Auto) 0.7 % (0.0-1.8) 05/10/21 11:03 Lymph # (Auto) 1.4 K/mm3 (1.2-5.4) 05/10/21 11:03 Porter # (Auto) 0.9 K/mm3 (0.0-0.8) H 05/10/21 11:03 Eos # (Auto) 0.3 K/mm3 (0.0-0.4) 05/10/21 11:03 Baso # (Auto) 0.0 K/mm3 (0.0-0.1) 05/10/21 11:03 Add Manual Diff Complete 05/12/21 07:18 Total Counted 100 05/12/21 07:18 Seg Neutrophils % Dietetics Professor 05/12/21 07:18 Seg Neuts % (Manual) 24.0 % (40.0-70.0) L 05/12/21 07:18 Lymphocytes % (Manual) 55.0 % (13.4-35.0) H 05/12/21 07:18 Monocytes % (Manual) 12.0 % (0.0-7.3) H 05/12/21 07:18 Eosinophils % (Manual) 7.0 % (0.0-4.3) H 05/12/21 07:18 Basophils % (Manual) 2.0 % (0.0-1.8) H 05/12/21 07:18 Nucleated RBC % Not Reportable 05/12/21 07:18 Seg Neutrophils # 3.2 K/mm3 (1.8-7.7) 05/10/21 11:03 Seg Neutrophils # Man 1.2 K/mm3 (1.8-7.7) L 05/12/21 07:18 Band Neutrophils # 0.0 K/mm3 05/12/21 07:18 Lymphocytes # (Manual) 2.6 K/mm3 (1.2-5.4) 05/12/21 07:18 Abs React Lymphs (Man) 0.0 K/mm3 05/12/21 07:18 Monocytes # (Manual) 0.6 K/mm3 (0.0-0.8) 05/12/21 07:18 Eosinophils # (Manual) 0.3 K/mm3 (0.0-0.4) 05/12/21 07:18 Basophils # (Manual) 0.1 K/mm3 (0.0-0.1) 05/12/21 07:18 Metamyelocytes # 0.0 K/mm3 05/12/21 07:18 Myelocytes # 0.0 K/mm3 05/12/21 07:18 Promyelocytes # 0.0 K/mm3 05/12/21 07:18 Blast Cells # 0.0 K/mm3 05/12/21 07:18 WBC Morphology Not Reportable 05/12/21 07:18 Hypersegmented Neuts Not Reportable 05/12/21 07:18 Hyposegmented Neuts Not Reportable 05/12/21 07:18 Hypogranular Neuts Not Reportable 05/12/21 07:18 Smudge Cells Not Reportable 05/12/21 07:18 Toxic Granulation Not Reportable 05/12/21 07:18 Toxic Vacuolation Not Reportable 05/12/21 07:18 Dohle Bodies Not Reportable 05/12/21 07:18 Pelger-Huet Anomaly Not Reportable 05/12/21 07:18 Tarah Rods Not Reportable 05/12/21 07:18 Platelet Estimate Consistent w auto 05/12/21 07:18 Clumped Platelets Not Reportable 05/12/21 07:18 Plt Clumps, EDTA Not Reportable 05/12/21 07:18 Large Platelets Not Reportable 05/12/21 07:18 Giant Platelets Not Reportable 05/12/21 07:18 Platelet Satelliting Not Reportable 05/12/21 07:18 Plt Morphology Comment Not Reportable 05/12/21 07:18 RBC Morphology Normal 05/12/21 07:18 Dimorphic RBCs Not Reportable 05/12/21 07:18 Polychromasia Not Reportable 05/12/21 07:18 Hypochromasia Not Reportable 05/12/21 07:18 Poikilocytosis Not Reportable 05/12/21 07:18 Anisocytosis Not Reportable 05/12/21 07:18 Microcytosis Not Reportable 05/12/21 07:18 Macrocytosis Not Reportable 05/12/21 07:18 Spherocytes Not Reportable 05/12/21 07:18 Pappenheimer Bodies Not Reportable 05/12/21 07:18 Sickle Cells Not Reportable 05/12/21 07:18 Target Cells Not Reportable 05/12/21 07:18 Tear Drop Cells Not Reportable 05/12/21 07:18 Ovalocytes Not Reportable 05/12/21 07:18 Helmet Cells Not Reportable 05/12/21 07:18 Grayson-Pittman Bodies Not Reportable 05/12/21 07:18 Logan Rings Not Reportable 05/12/21 07:18 Emerald Cells Not Reportable 05/12/21 07:18 Bite Cells Not Reportable 05/12/21 07:18 Crenated Cell Not Reportable 05/12/21 07:18 Elliptocytes Not Reportable 05/12/21 07:18 Acanthocytes (Spur) Not Reportable 05/12/21 07:18 Rouleaux Not Reportable 05/12/21 07:18 Hemoglobin C Crystals Not Reportable 05/12/21 07:18 Schistocytes Not Reportable 05/12/21 07:18 Malaria parasites Not Reportable 05/12/21 07:18 Blaine Bodies Not Reportable 05/12/21 07:18 Hem Pathologist Commnt No 05/12/21 07:18 Sodium 139 mmol/L (137-145) 05/14/21 05:57 Potassium 4.4 mmol/L (3.6-5.0) D 05/14/21 05:57 Chloride 99.5 mmol/L (98-107) 05/14/21 05:57 Carbon Dioxide 28 mmol/L (22-30) 05/14/21 05:57 Anion Gap 16 mmol/L 05/14/21 05:57 BUN 6 mg/dL (9-20) L 05/14/21 05:57 Creatinine 1.2 mg/dL (0.8-1.3) 05/14/21 05:57 Estimated GFR > 60 ml/min 05/14/21 05:57 BUN/Creatinine Ratio 5 % 05/14/21 05:57 Glucose 119 mg/dL (75-100) H 05/14/21 05:57 Calcium 8.7 mg/dL (8.4-10.2) 05/14/21 05:57 Phosphorus 2.70 mg/dL (2.5-4.5) 05/12/21 07:18 Magnesium 2.10 mg/dL (1.7-2.3) 05/12/21 07:18 Total Bilirubin 1.30 mg/dL (0.1-1.2) H 05/14/21 05:57 AST 87 units/L (5-40) H 05/14/21 05:57 ALT 172 units/L (7-56) H 05/14/21 05:57 Alkaline Phosphatase 133 units/L (35-129) H 05/14/21 05:57 Total Protein 6.5 g/dL (6.3-8.2) 05/14/21 05:57 Albumin 2.9 g/dL (3.9-5) L 05/14/21 05:57 Albumin/Globulin Ratio 0.8 % 05/14/21 05:57 Lipase 50 units/L (13-60) 05/10/21 11:03 Urine Color Sarah (Yellow) 05/10/21 13:19 Urine Turbidity Clear (Clear) 05/10/21 13:19 Urine pH 7.0 (5.0-7.0) 05/10/21 13:19 Ur Specific [place] 1.026 (1.003-1.030) 05/10/21 13:19 Urine Protein 30 mg/dl mg/dL (Negative) 05/10/21 13:19 Urine Glucose (UA) Neg mg/dL (Negative) 05/10/21 13:19 Urine Ketones Neg mg/dL (Negative) 05/10/21 13:19 Urine Blood Neg (Negative) 05/10/21 13:19 Urine Nitrite Neg (Negative) 05/10/21 13:19 Urine Bilirubin Mod (Negative) 05/10/21 13:19 Urine Ictotest Positive (Negative) 05/10/21 13:19 Urine Urobilinogen 4.0 mg/dL (<2.0) 05/10/21 13:19 Ur Leukocyte Esterase Neg (Negative) 05/10/21 13:19 Urine WBC (Auto) 2.0 /HPF (0.0-6.0) 05/10/21 13:19 Urine RBC (Auto) 5.0 /HPF (0.0-6.0) 05/10/21 13:19 U Epithel Cells (Auto) < 1.0 /HPF (0-13.0) 05/10/21 13:19 Urine Mucus 3+ /HPF 05/10/21 13:19 Hepatitis A IgM Ab Non-reactive (NonReactive) 05/10/21 21:40 Hep Bs Antigen Nonreactive (Negative) 05/10/21 21:40 Hep B Core IgM Ab Non-reactive (NonReactive) 05/10/21 21:40 Hepatitis C Antibody Non-reactive (NonReactive) 05/10/21 21:40 Mendoza/IV: Voiding Method Urinal Active Medications - Current Medications Current Medications: Generic Name Dose Route Start Last Admin Trade Name Freq PRN Reason Stop Dose Admin Acetaminophen 650 mg 05/10/21 21:02 Acetaminophen 325 Mg Tab PO Q4H PRN Pain MILD(1-3)/Fever >100.5/MANN Famotidine 20 mg 05/10/21 22:00 05/13/21 22:26 Famotidine 20 Mg/2 Ml Inj IV 20 mg BID KRISTI Administration Heparin Sodium (Porcine) 5,000 unit 05/12/21 22:00 05/14/21 05:36 Heparin 5,000 Unit/1 Ml Vial SUB-Q 5,000 unit Q8HR KRISTI Administration Hydromorphone HCl 1 mg 05/12/21 18:52 05/14/21 03:52 Hydromorphone 1 Mg/1 Ml Inj IV 1 mg Q3H PRN Administration Pain , Severe (7-10) Dextrose/Sodium Chloride 1,000 mls @ 75 mls/hr 05/10/21 22:00 05/14/21 02:53 D5ns IV 75 mls/hr DIRECT KRISTI Administration Piperacillin Sod/Tazobactam Sod 4.5 gm in 100 mls @ 200 mls/hr 05/10/21 22:00 05/14/21 05:36 Zosyn/Ns 4.5gm/100ml IV 200 mls/hr Q8HR KRISTI Administration Protocol Morphine Sulfate 2 mg 05/10/21 21:02 05/13/21 20:11 Morphine 2 Mg/1 Ml Inj IV 2 mg Q4H PRN Administration Pain, Moderate (4-6) Ondansetron HCl 4 mg 05/10/21 21:02 Ondansetron 4 Mg/2 Ml Inj IV Q3H PRN Nausea And Vomiting Sodium Chloride 10 ml 05/10/21 22:00 05/13/21 22:27 Sodium Chloride 0.9% 10 Ml Flush Syringe IV 10 ml BID KRISTI Administration Sodium Chloride 10 ml 05/10/21 21:02 05/14/21 03:52 Sodium Chloride 0.9% 10 Ml Flush Syringe IV 10 ml PRN PRN Administration LINE FLUSH
[2021-05-14] MEDS ORDERED: oxyCODONE /ACETAMINOPHEN 5-325MG TAB PO PRN ×2 (10:31→13:11)
[2021-05-14] MEDS: FAMOTIDINE 20 MG/2 ML INJ IV SCH ×2 (10:51→21:21)
[2021-05-14] MEDS ORDERED: HYDROcodone/ACETAMINOPHEN 5-325 MG TAB PO ONE (11:00)
[2021-05-14] MEDS ORDERED: oxyCODONE 5 MG TAB PO ONE (11:00)
--- NOTE | 2021-05-14 13:08 | Progress Note ---
Assessment and Plan 30 yo M s/p diagnostic laparoscopy converted to exploratory laparotomy, extensive adhesiolysis, cholecystectomy, primary repair of enterotomy, POD 2 Pathology: Gallbladder: Chronic cholecystitis Plan: 1. adv to FLD in am tomorrow. Anticipate ileus and would not advance past FLD even at discharge 2. gentle IVF 3. prn pain and nausea control - will start PO percocet 4. abdominal binder 5. OOB/ambulate 6. DVT ppx 7. IS/pulm toilet 8. Anticipate dc in [address] Negron rounding 05/15 to 05/2017 Thank you, please call with questions. Subjective Date of service: 05/14/21 Narrative: Patient seen and examined. States he feels much better today. He is out of bed into the chair. His pain is improved. He is tolerating clear liquids. Afebrile. No nausea or vomiting. No flatus or BM. Objective Vital Signs - 12hr 05/14/21 05/14/21 05:00 11:41 Temperature 98.6 F 98.4 F Pulse Rate 70 65 Respiratory 18 20 Rate Blood Pressure 124/84 137/94 O2 Sat by Pulse 100 99 Oximetry - General physical appearance Narrative Exam: Gen.: Awake, alert, oriented x3. No apparent distress ENT: Trachea midline. No lymphadenopathy. No scleral icterus or conjunctival pallor CV: S1, S2 present Respiratory: No audible wheezes Abdomen: Soft, nondistended, mild incisional tendernessappropriate. Dressing removed. Incision is clean, dry, intact with carrie in place. Abdominal pad applied and secured with abdominal binder. No rebound, rigidity, guarding Extremities: No clubbing, cyanosis, edema - Labs 05/14/21 05:57 05/14/21 05:57 Diabetes panel 05/13/21 05/14/21 Range/Units 13:23 05:57 Sodium 138 139 (137-145) mmol/L Potassium 3.5 L D 4.4 D (3.6-5.0) mmol/L Chloride 100.3 99.5 (98-107) mmol/L Carbon Dioxide 25 28 (22-30) mmol/L BUN 7 L 6 L (9-20) mg/dL Creatinine 1.1 1.2 (0.8-1.3) mg/dL Glucose 118 H 119 H (75-100) mg/dL Calcium 8.6 8.7 (8.4-10.2) mg/dL AST 87 H (5-40) units/L ALT 172 H (7-56) units/L Alkaline Phosphatase 133 H (35-129) units/L Total Protein 6.5 (6.3-8.2) g/dL Albumin 2.9 L (3.9-5) g/dL Calcium panel 05/13/21 05/14/21 Range/Units 13:23 05:57 Calcium 8.6 8.7 (8.4-10.2) mg/dL Albumin 2.9 L (3.9-5) g/dL Pituitary panel 05/13/21 05/14/21 Range/Units 13:23 05:57 Sodium 138 139 (137-145) mmol/L Potassium 3.5 L D 4.4 D (3.6-5.0) mmol/L Chloride 100.3 99.5 (98-107) mmol/L Carbon Dioxide 25 28 (22-30) mmol/L BUN 7 L 6 L (9-20) mg/dL Creatinine 1.1 1.2 (0.8-1.3) mg/dL Glucose 118 H 119 H (75-100) mg/dL Calcium 8.6 8.7 (8.4-10.2) mg/dL Adrenal panel 05/13/21 05/14/21 Range/Units 13:23 05:57 Sodium 138 139 (137-145) mmol/L Potassium 3.5 L D 4.4 D (3.6-5.0) mmol/L Chloride 100.3 99.5 (98-107) mmol/L Carbon Dioxide 25 28 (22-30) mmol/L BUN 7 L 6 L (9-20) mg/dL Creatinine 1.1 1.2 (0.8-1.3) mg/dL Glucose 118 H 119 H (75-100) mg/dL Calcium 8.6 8.7 (8.4-10.2) mg/dL Total Bilirubin 1.30 H (0.1-1.2) mg/dL AST 87 H (5-40) units/L ALT 172 H (7-56) units/L Alkaline Phosphatase 133 H (35-129) units/L Total Protein 6.5 (6.3-8.2) g/dL Albumin 2.9 L (3.9-5) g/dL
[2021-05-14] MEDS ORDERED: HYDROcodone/ACETAMINOPHEN 10-325MG TAB PO PRN (15:00)
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
[2021-05-15] MEDS: HYDROmorphone 1 MG/1 ML INJ IV PRN ×2 (00:20→09:28)
[2021-05-15] MEDS: HEPARIN 5,000 UNIT/1 ML VIAL SUB-Q SCH (05:28)
[2021-05-15] MEDS: D5W/0.9% NACL 1,000 ML IV SCH (05:29)
[2021-05-15] MEDS: FAMOTIDINE 20 MG/2 ML INJ IV SCH (09:23)
[2021-05-15 11:19] LABS: Hematocrit 41.9 % (35.5-45.6); Hemoglobin 14.7 gm/dl (11.8-15.2); Mean Corpuscular HGB Conc 35 % (32-34); Mean Corpuscular Volume 93 fl (84-94); Platelet Count 309 K/mm3 (140-440); Red Cell Distribution Width 13.4 % (13.2-15.2)
[2021-05-15 11:51] LABS: Alanine Aminotransferase 255 units/L (7-56); Albumin 3.2 g/dL (3.9-5); BUN/Creatinine Ratio 6; Blood Urea Nitrogen 5 mg/dL (9-20); Calcium 9.1 mg/dL (8.4-10.2); Hemolysis Index 2
[2021-05-15 11:54] VITALS: BP 147/91
--- NOTE | 2021-05-15 13:37 | Progress Note ---
Assessment and Plan 30-year-old male postop day #3 status post open cholecystectomy for cholecystitis. Afebrile and stable. Tolerating a diet but not passing flatus as yet. Patient does have acute increase in bilirubin and LFTs, with no leukocytosis. Expressed the patient that he should probably stay at least 1 more day to ensure full return of bowel function. Patient says he is adamant that he wants to go home today and will stay on full liquid diet for at least the next week. Of note laboratory values are resulted after examination and I had a discussion with Dr. Hua hospitalist. Agree that he should be seen by GI prior to discharge that he can stay least 1 more day. If patient does not agree to stay for further observation, patient may sign out AMA. Upon discharge patient should follow-up with Dr. Russell in 2 weeks for staple removal. Patient should do no heavy lifting or straining for the next 4 weeks. Subjective Date of service: 05/15/21 Narrative: No acute events overnight. Patient says that he feels well and wants to go home today. Patient denies passing any flatus but he does say he is tolerating clear liquid diet. He says that his pain is controlled. Objective Vital Signs - 12hr 05/15/21 05/15/21 05:02 11:53 Temperature 99.1 F 98.4 F Pulse Rate 75 67 Respiratory 18 20 Rate Blood Pressure 121/79 Blood Pressure 147/91 [Left] O2 Sat by Pulse 97 99 Oximetry - General physical appearance well developed, no distress, no pain - Respiratory normal expansion, normal respiratory effort - Abdomen soft, not distended, other (Vertical midline incision clean dry and intact, appropriate tender to palpation,) - Labs 05/15/21 11:01 05/15/21 11:01 Diabetes panel 05/15/21 Range/Units 11:01 Sodium 142 (137-145) mmol/L Potassium 4.2 (3.6-5.0) mmol/L Chloride 103.6 (98-107) mmol/L Carbon Dioxide 26 (22-30) mmol/L BUN 5 L (9-20) mg/dL Creatinine 0.8 (0.8-1.3) mg/dL Glucose 122 H (75-100) mg/dL Calcium 9.1 (8.4-10.2) mg/dL AST 151 H (5-40) units/L ALT 255 H (7-56) units/L Alkaline Phosphatase 242 H (35-129) units/L Total Protein 7.3 (6.3-8.2) g/dL Albumin 3.2 L (3.9-5) g/dL Calcium panel 05/15/21 Range/Units 11:01 Calcium 9.1 (8.4-10.2) mg/dL Albumin 3.2 L (3.9-5) g/dL Pituitary panel 05/15/21 Range/Units 11:01 Sodium 142 (137-145) mmol/L Potassium 4.2 (3.6-5.0) mmol/L Chloride 103.6 (98-107) mmol/L Carbon Dioxide 26 (22-30) mmol/L BUN 5 L (9-20) mg/dL Creatinine 0.8 (0.8-1.3) mg/dL Glucose 122 H (75-100) mg/dL Calcium 9.1 (8.4-10.2) mg/dL Adrenal panel 05/15/21 Range/Units 11:01 Sodium 142 (137-145) mmol/L Potassium 4.2 (3.6-5.0) mmol/L Chloride 103.6 (98-107) mmol/L Carbon Dioxide 26 (22-30) mmol/L BUN 5 L (9-20) mg/dL Creatinine 0.8 (0.8-1.3) mg/dL Glucose 122 H (75-100) mg/dL Calcium 9.1 (8.4-10.2) mg/dL Total Bilirubin 5.70 H (0.1-1.2) mg/dL AST 151 H (5-40) units/L ALT 255 H (7-56) units/L Alkaline Phosphatase 242 H (35-129) units/L Total Protein 7.3 (6.3-8.2) g/dL Albumin 3.2 L (3.9-5) g/dL
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
--- NOTE | 2021-05-15 15:10 | Gastroenterology Progress Note ---
Assessment and Plan 1. GI: s/p lap phyllis, ercp unable to removed migrated metal stent - will need ercp w/ spyglass as outpt - diet as tolerated - f/u oputpt, pt told to go to tertiary center if symptoms jaundice etc - will sign off, call if needed Subjective Date of service: 05/15/21 Interval history: - feels better, wants to go Objective - Constitutional Vitals: Temp Pulse Resp BP Pulse Ox 98.4 F 67 20 147/91 99 05/15/21 11:53 05/15/21 11:53 05/15/21 11:53 05/15/21 11:53 05/15/21 11:53 General appearance: no acute distress - EENT Eyes: PERRL - Respiratory Respiratory: bilateral: CTA - Cardiovascular Rhythm: regular Heart Sounds: Present: S1 & S2 - Gastrointestinal General gastrointestinal: Present: soft, non-tender, non-distended - Labs CBC & Chem 7: 05/15/21 11:01 05/15/21 11:01 Labs: Laboratory Results - last 24 hr 05/15/21 05/15/21 11:01 11:01 WBC 4.3 L RBC 4.50 Hgb 14.7 Hct 41.9 MCV 93 MCH 33 H MCHC 35 H RDW 13.4 Plt Count 309 Sodium 142 Potassium 4.2 Chloride 103.6 Carbon Dioxide 26 Anion Gap 17 BUN 5 L Creatinine 0.8 Estimated GFR > 60 BUN/Creatinine Ratio 6 Glucose 122 H Calcium 9.1 Total Bilirubin 5.70 H AST 151 H ALT 255 H Alkaline Phosphatase 242 H Total Protein 7.3 Albumin 3.2 L Albumin/Globulin Ratio 0.8
== END 2021-05-15 16:06 | disposition home or self-care (01) | DRG 416 ==
LOC: ED 09:39 → 3A 17:42
PROVIDERS: ADMIT Internal Medicine; ATTEND Student in an Organized Health Care Education/Training Program
PROC: 0FJB8ZZ Inspection of Hepatobiliary Duct, Via Natural or Artificial Opening Endoscopic (ICD-10-PCS; principal; 2021-05-12)
PROC: 0FT40ZZ Resection of Gallbladder, Open Approach (ICD-10-PCS; 2021-05-12)
PROC: 0FJ44ZZ Inspection of Gallbladder, Percutaneous Endoscopic Approach (ICD-10-PCS; 2021-05-12)
PROC: 0DNW0ZZ Release Peritoneum, Open Approach (ICD-10-PCS; 2021-05-12)
DX: K81.0 Acute cholecystitis (principal); R79.89 Other specified abnormal findings of blood chemistry; E80.6 Other disorders of bilirubin metabolism; D75.1 Secondary polycythemia; F17.200 Nicotine dependence, unspecified, uncomplicated; E86.0 Dehydration; K66.0 Peritoneal adhesions (postprocedural) (postinfection)
CPT/HCPCS: 36415; 74177; 74181; 74328; 76705; 80048; 80053; 80074; 81001; 83690; 83735; 84100; 85007; 85025; 85027; 88304; G0378; C1726; J0690; J1100; J1170; J1644; J2250; J2270; J2405; J2543; J2704; J2710; J3010; J3490; J7030; J7042; J7120; Q9967

== ENCOUNTER 2021-05-30 09:13 | Emergency (ER) | payer SELFPAY ==
[2021-05-30 09:17] VITALS: BP 148/92
== END 2021-05-30 09:45 | disposition left against medical advice (07) ==
LOC: ED 09:13
DX: Z48.02 Encounter for removal of sutures (principal); Z53.21 Procedure and treatment not carried out due to patient leaving prior to being seen by health care provider